=== PATIENT | female | born 1985 | race Caucasian/White ===

== ENCOUNTER 2018-11-23 11:36 | Day surgery (SDC) | payer BC ==
[~2018-11-23] VITALS: Ht 165.1 cm; Wt 68.3 kg
--- NOTE | 2018-11-23 12:49 | NUR ---
11/23/18 1248 Samina Velazquez PREOP TEACHING COMPLETED AT THIS TIME. CALL LIGHT WITHIN REACH. PT RESTING READING A BOOK.
== END 2018-11-23 14:01 | disposition home or self-care (01) ==
LOC: ORSCSDS 11:36
PROVIDERS: Internal Medicine Gastroenterology
PROC: 0DBN8ZX Excision of Sigmoid Colon, Via Natural or Artificial Opening Endoscopic, Diagnostic (ICD-10-PCS; principal; 2018-11-23 13:00)
PROC: 0DBB8ZX Excision of Ileum, Via Natural or Artificial Opening Endoscopic, Diagnostic (ICD-10-PCS; principal; 2018-11-23 13:00)
PROC: 3E0H8GC Introduction of Other Therapeutic Substance into Lower GI, Via Natural or Artificial Opening Endoscopic (ICD-10-PCS; principal; 2018-11-23 13:00)
DX: K92.1 Melena (principal); R10.84 Generalized abdominal pain; R19.4 Change in bowel habit; D12.5 Benign neoplasm of sigmoid colon; K64.8 Other hemorrhoids
CPT/HCPCS: 88305; J2704; J7120

== ENCOUNTER → 2019-01-20 | Outpatient (CLI) | payer BC ==
[2019-01-23 15:06] LABS: HPV 16 Negative (Negative); HPV 18 Positive (Negative); HPV OTHER HR TYPES Negative (Negative)
== END | disposition home or self-care (01) ==
LOC: LAB 11:10 → LAB SHORT 11:10
PROVIDERS: Nurse Practitioner Women's Health
DX: Z12.4 Encounter for screening for malignant neoplasm of cervix (principal); Z91.89 Other specified personal risk factors, not elsewhere classified
CPT/HCPCS: 87624; 87625; G0123

== ENCOUNTER → 2019-02-23 | Outpatient (CLI) | payer BC | END | disposition home or self-care (01) | LOC: PLD 12:50 → LAB SHORT 12:50 | DX: N87.1 Moderate cervical dysplasia (principal) | CPT/HCPCS: 88305 ==

== ENCOUNTER → 2019-03-17 | Outpatient (CLI) | payer BC | END | disposition home or self-care (01) | LOC: LAB SHORT 13:56 → PLD 13:56 | DX: N87.1 Moderate cervical dysplasia (principal); D06.0 Carcinoma in situ of endocervix | CPT/HCPCS: 88305 ==